=== PATIENT | male | born 1940 | race Caucasian/White ===

== ENCOUNTER 2017-02-15 08:26 | Emergency (ER) | payer SELFPAY ==
[~2017-02-15] VITALS: Ht 177.8 cm; Wt 63.5 kg
[2017-02-15] MEDS ORDERED: NKM (08:30)
[2017-02-15 08:32] VITALS: BP 143/85
--- NOTE | 2017-02-15 08:53 | Emergency Room Report ---
History of Present Illness General Chief Complaint: Male Urogenital Problems Source: Patient, EMS Present Illness HPI Patient reports he has had decreased urine output over the past 4 days He feels of the urine is building up in the bladder however has not been able to fully void Patient reports that he has never had this problem in the past Denies any fevers or chills denies any fall or trauma Denies any weakness in the legs denies any back injury Denies any medications The discomfort is 2/10 with pressure in the suprapubic area Allergies: Coded Allergies: No Known Allergies (Unverified , 02/15/17) Patient History Past Medical History: see triage record Pertinent Family History: none Reviewed Nursing Documentation: PMH: Agreed, PSxH: Agreed Nursing Documentation-PMH Hx COPD: Yes Review of Systems All Other Systems: negative except mentioned in HPI Physical Exam Vital Signs Date Time Temp Pulse Resp B/P (MAP) Pulse Ox O2 Delivery O2 Flow Rate FiO2 02/15/17 08:24 98.1 107 20 141/92 90 Room Air Sp02 EP Interpretation: reviewed, normal General Appearance: no apparent distress - However mildly disheveled Head: normocephalic, atraumatic Eyes: bilateral eye PERRL, bilateral eye EOMI ENT: normal pharynx Neck: supple, thyroid normal Respiratory: lungs clear, normal breath sounds Cardiovascular #1: regular rate, rhythm, no edema Gastrointestinal: non tender, soft Genitourinary: no CVA tenderness Musculoskeletal: normal inspection Neurologic: alert, oriented x3, responsive, metal template maker III-XII nml as tested Skin: normal color, no rash Lymphatic: no adenopathy Medical Decision Making Diagnostic Impression: Primary Impression: Urinary retention Additional Impression: UTI (urinary tract infection) ER Course Multiple differentials considered Including but not limited to obstructive Patient blood work appears normal kidney function is appropriate urine sample showed small blood with few bacteria patient was treated with antibiotics for this Savage catheter will be left in place Patient requires close urology followup And will return with any changes Labs Test 02/15/17 08:45 02/15/17 09:05 White Blood Count 5.4 K/UL (4.8-10.8) Red Blood Count 4.99 M/UL (4.70-6.10) Hemoglobin 14.6 G/DL (14.2-18.0) Hematocrit 45.8 % (42.0-52.0) Mean Corpuscular Volume 92 FL (80-99) Mean Corpuscular Hemoglobin 29.2 PG (27.0-31.0) Mean Corpuscular Hemoglobin Concent 31.8 G/DL (32.0-36.0) Red Cell Distribution Width 14.3 % (11.6-14.8) Platelet Count 305 K/UL (150-450) Mean Platelet Volume 4.9 FL (6.5-10.1) Neutrophils (%) (Auto) 74.9 % (45.0-75.0) Lymphocytes (%) (Auto) 12.4 % (20.0-45.0) Monocytes (%) (Auto) 7.2 % (1.0-10.0) Eosinophils (%) (Auto) 4.1 % (0.0-3.0) Basophils (%) (Auto) 1.3 % (0.0-2.0) Sodium Level 144 MMOL/L (136-145) Potassium Level 3.5 MMOL/L (3.5-5.1) Chloride Level 104 MMOL/L (98-107) Carbon Dioxide Level 30 MMOL/L (21-32) Anion Gap 10 mmol/L (5-15) Blood Urea Nitrogen 19 mg/dL (7-18) Creatinine 1.1 MG/DL (0.55-1.30) Estimat Glomerular Filtration Rate mL/min (>60) Glucose Level 118 MG/DL (74-106) Calcium Level 9.3 MG/DL (8.5-10.1) Total Bilirubin 0.4 MG/DL (0.2-1.0) Aspartate Amino Transf (AST/SGOT) 14 U/L (15-37) Alanine Aminotransferase (ALT/SGPT) 13 U/L (12-78) Alkaline Phosphatase 73 U/L (46-116) Total Protein 8.0 G/DL (6.4-8.2) Albumin 3.6 G/DL (3.4-5.0) Globulin 4.4 g/dL Albumin/Globulin Ratio 0.8 (1.0-2.7) Urine Color Yellow Urine Appearance Clear Urine pH 5 (4.5-8.0) Urine Specific [place] 1.020 (1.005-1.035) Urine Protein 1+ (NEGATIVE) Urine Glucose (UA) Negative (NEGATIVE) Urine Ketones 1+ (NEGATIVE) Urine Occult Blood 1+ (NEGATIVE) Urine Nitrite Negative (NEGATIVE) Urine Bilirubin Negative (NEGATIVE) Urine Urobilinogen 1 MG/DL (0.0-1.0) Urine Leukocyte Esterase 1+ (NEGATIVE) Urine RBC 2-4 /HPF (0 - 0) Urine WBC 0-2 /HPF (0 - 0) Urine Squamous Epithelial Cells Occasional /LPF Urine Bacteria Occasional /HPF (NONE) Urine Mucus Moderate /LPF (NONE/OCC) Last Vital Signs Date Time Temp Pulse Resp B/P (MAP) Pulse Ox O2 Delivery O2 Flow Rate FiO2 02/15/17 08:32 97.8 80 25 143/85 98 Room Air Status: improved Disposition: HOME, SELF-CARE Condition: Improved Scripts Levofloxacin* (LEVAQUIN*) 500 Mg Tablet 500 MG ORAL DAILY for 7 Days, TAB Prov: YAHAIRA PETTY D.O. 02/15/17 Tamsulosin HCl (Flomax) 0.4 Mg Cap.er.24h 0.4 MG ORAL DAILY, #5 CAP Prov: YAHAIRA PETTY D.O. 02/15/17 Additional Instructions: Patient is provided with the discharge instructions notified to follow up with primary doctor in the next 2-3 days otherwise return to the er with any worsening symptoms. Please note that this report is being documented using [employer] technology. This can lead to erroneous entry secondary to incorrect interpretation by the dictating instrument. YAHAIRA PETTY D.O. Feb 15, 2017 08:53
[2017-02-15] MEDS ORDERED: Lidocaine HCl 2% Jelly 5ml Tube TOPIC ONE ×2 (08:54→09:00)
[2017-02-15 09:05] LABS: BASOPHILS % (AUTO) 1.3 % (0.0-2.0); EOSINOPHILS % (AUTO) 4.1 % (0.0-3.0); HEMATOCRIT 45.8 % (42.0-52.0); HEMOGLOBIN 14.6 G/DL (14.2-18.0); LYMPHOCYTES % (AUTO) 12.4 % (20.0-45.0); MEAN CORPUSCULAR VOLUME 92 FL (80-99); MONOCYTES % (AUTO) 7.2 % (1.0-10.0); NEUTROPHILS % (AUTO) 74.9 % (45.0-75.0); PLATELET COUNT 305 K/UL (150-450); RED BLOOD COUNT 4.99 M/UL (4.70-6.10); RED CELL DISTRIBUTION WIDTH 14.3 % (11.6-14.8); WHITE BLOOD COUNT 5.4 K/UL (4.8-10.8)
[2017-02-15 09:22] LABS: ALANINE AMINOTRANSFERASE 13 U/L (12-78); ALBUMIN 3.6 G/DL (3.4-5.0); ALBUMIN/GLOBULIN RATIO 0.8 (1.0-2.7); ALKALINE PHOSPHATASE 73 U/L (46-116); ANION GAP 10 mmol/L (5-15); ASPARTATE AMINO TRANSFERASE 14 U/L (15-37); BILIRUBIN,TOTAL 0.4 MG/DL (0.2-1.0); BLOOD UREA NITROGEN 19 mg/dL (7-18); CALCIUM 9.3 MG/DL (8.5-10.1); CARBON DIOXIDE 30 MMOL/L (21-32); CHLORIDE 104 MMOL/L (98-107); CREATININE 1.1 MG/DL (0.55-1.30); POTASSIUM 3.5 MMOL/L (3.5-5.1); SODIUM 144 MMOL/L (136-145)
[2017-02-15 09:23] LABS: APPEARANCE,URINE CLEAR; BILIRUBIN, URINE NEGATIVE (NEGATIVE); GLUCOSE, URINE (UA) NEGATIVE (NEGATIVE); KETONES,URINE 1+ (NEGATIVE); LEUKOCYTE ESTERASE ,URINE 1+ (NEGATIVE); NITRITE,URINE NEGATIVE (NEGATIVE); PH,URINE 5 (4.5-8.0); PROTEIN,URINE 1+ (NEGATIVE); UROBILINOGEN,URINE 1 MG/DL (0.0-1.0)
[2017-02-15 09:26] LABS: COLOR,URINE YELLOW
[2017-02-15] MEDS ORDERED: FLOMAX0.4 MG ORAL (09:38)
[2017-02-15] MEDS ORDERED: LEVAQUIN500 MG ORAL (09:38)
[2017-02-15] MEDS ORDERED: Levofloxacin 500mg tab ORAL ONE (09:45)
[2017-02-15 10:00] VITALS: BP 129/79
== END 2017-02-15 10:00 | disposition home or self-care (01) ==
LOC: EDBD 08:26 → EMR 09:03
DX: R33.9 Retention of urine, unspecified (principal); N39.0 Urinary tract infection, site not specified; J44.9 Chronic obstructive pulmonary disease, unspecified
CPT/HCPCS: 36415; 80053; 81003; 85025; 99284

== ENCOUNTER 2017-02-18 06:42 | Emergency (ER) | payer SELFPAY ==
[~2017-02-18] VITALS: Ht 177.8 cm; Wt 61.2 kg
[~2017-02-18 06:42] MED LIST: FLOMAX0.4 MG ORAL; LEVAQUIN500 MG ORAL; NKM
--- NOTE | 2017-02-18 06:51 | Emergency Room Report ---
History of Present Illness General Chief Complaint: General Complaint Source: Patient Present Illness HPI Patient presents with complaints and request of catheter removal Patient was here several days ago with urinary retention Patient was supposed to be following up with primary physician He reports it is not able to do so and presents back to the ER Denies any fevers or chills denies any chest pain or shortness of breath Urine has been flowing into the Savage bag Denies any abdominal pain Denies any fevers or chills Allergies: Coded Allergies: No Known Allergies (Unverified , 02/15/17) Patient History Past Medical History: see triage record Pertinent Family History: none Reviewed Nursing Documentation: PMH: Agreed, PSxH: Agreed Nursing Documentation-PMH Hx COPD: Yes Review of Systems All Other Systems: negative except mentioned in HPI Physical Exam Vital Signs Date Time Temp Pulse Resp B/P (MAP) Pulse Ox O2 Delivery O2 Flow Rate FiO2 02/18/17 06:44 97.2 129 18 127/89 95 Room Air Sp02 EP Interpretation: reviewed, normal General Appearance: no apparent distress Head: normocephalic, atraumatic Eyes: bilateral eye PERRL, bilateral eye EOMI ENT: normal pharynx, no angioedema Neck: full range of motion, supple Respiratory: chest non-tender, lungs clear Cardiovascular #1: regular rate, rhythm Gastrointestinal: non tender, soft Genitourinary: no CVA tenderness Musculoskeletal: normal inspection Neurologic: alert, oriented x3 Skin: no rash Lymphatic: no adenopathy Medical Decision Making Diagnostic Impression: Primary Impression: Encounter for Savage catheter removal ER Course Patient's Savage catheter was removed At this time he is encouraged again to follow with primary physician With possible urology referral as needed And otherwise will return with any changes Last Vital Signs Date Time Temp Pulse Resp B/P (MAP) Pulse Ox O2 Delivery O2 Flow Rate FiO2 02/18/17 06:44 97.2 129 18 127/89 95 Room Air Status: improved Disposition: HOME, SELF-CARE Condition: Improved Additional Instructions: Patient is provided with the discharge instructions notified to follow up with primary doctor in the next 2-3 days otherwise return to the er with any worsening symptoms. Please note that this report is being documented using [employer] technology. This can lead to erroneous entry secondary to incorrect interpretation by the dictating instrument. YAHAIRA PETTY D.O. Feb 18, 2017 06:51
[2017-02-18 06:57] VITALS: BP 116/74
[2017-02-18 07:10] VITALS: BP 119/74
== END 2017-02-18 07:10 | disposition home or self-care (01) ==
LOC: EMR 06:55
DX: Z46.6 Encounter for fitting and adjustment of urinary device (principal); R33.9 Retention of urine, unspecified; J44.9 Chronic obstructive pulmonary disease, unspecified
CPT/HCPCS: 99282

== ENCOUNTER 2017-02-19 06:44 | Emergency (ER) | payer SELFPAY ==
[~2017-02-19] VITALS: Ht 177.8 cm; Wt 61.2 kg
--- NOTE | 2017-02-19 07:15 | Emergency Room Report ---
History of Present Illness General Chief Complaint: Male Urogenital Problems Source: Patient Present Illness HPI Patient was here previously with urinary retention Savage catheter had been placed, patient had return to the ER for removal of the catheter yesterday and now presents with retention since last night Patient has increased fullness in the bladder / pain Reports it is not as bad as the first time however did not want to wait Denies any fevers denies any chest pain or shortness of breath Allergies: Coded Allergies: No Known Allergies (Unverified , 02/15/17) Patient History Past Medical History: see triage record Pertinent Family History: none Reviewed Nursing Documentation: PMH: Agreed, PSxH: Agreed Nursing Documentation-PMH Hx COPD: Yes Review of Systems All Other Systems: negative except mentioned in HPI Physical Exam Vital Signs Date Time Temp Pulse Resp B/P (MAP) Pulse Ox O2 Delivery O2 Flow Rate FiO2 02/19/17 06:46 97.7 103 16 132/86 96 Room Air Sp02 EP Interpretation: reviewed, normal General Appearance: well appearing, no apparent distress Head: normocephalic, atraumatic Eyes: bilateral eye PERRL, bilateral eye EOMI ENT: hearing grossly normal, normal pharynx Neck: full range of motion, supple Respiratory: lungs clear Cardiovascular #1: regular rate, rhythm Gastrointestinal: non tender, soft, no mass Musculoskeletal: normal inspection Neurologic: alert, oriented x3, responsive Skin: normal color, no rash Lymphatic: no adenopathy Medical Decision Making Diagnostic Impression: Primary Impression: Urinary retention ER Course At this time the patient had Savage catheter placed, there was no obvious of urine output, palpation of the bladder does not reveal any fullness, bedside evaluation does not reveal any urine in the bladder Patient has had recent blood work showing appropriate kidney function At this time patient requires improved outpatient followup Patient reports that he has no insurance and does not have a primary physician, he was given referral to low-cost clinics and also possibility of followup at [facility] Last Vital Signs Date Time Temp Pulse Resp B/P (MAP) Pulse Ox O2 Delivery O2 Flow Rate FiO2 02/19/17 06:46 97.7 103 16 132/86 96 Room Air Status: improved Disposition: HOME, SELF-CARE Condition: Improved Referrals: NOT CHOSEN IPA/MD,REFERRING (PCP) Additional Instructions: Followup with primary physician next 2-3 days. You have stated that he did not have a primary physician therefore clinic has been provided for you With phone numbers. IF [facility] is not possible [facility], YAHAIRA PETTY D.O. Feb 19, 2017 07:15
[2017-02-19 07:44] VITALS: BP 135/86
[2017-02-19 08:41] VITALS: BP 135/86
== END 2017-02-19 08:45 | disposition home or self-care (01) ==
LOC: EMR 07:02
DX: R33.9 Retention of urine, unspecified (principal); J44.9 Chronic obstructive pulmonary disease, unspecified
CPT/HCPCS: 99283

== ENCOUNTER 2018-05-31 12:02 | Emergency (ER) | payer MEDICARE, OTHER ==
[~2018-05-31] VITALS: Ht 182.9 cm; Wt 77.1 kg
[2018-05-31] MEDS ORDERED: NKM (12:27)
--- NOTE | 2018-05-31 12:45 | NUR ---
ED Nurse Note: Pt came into the Er w/ complaints of difficulty urinating x 2 days. Denies pain. Pt is A + O x4. AMbulatory. Skin warm to otuch.
[2018-05-31 12:46] VITALS: BP 161/93
[2018-05-31] MEDS ORDERED: TAMSULOSIN HCL0.4 MG ORAL (13:08)
[2018-05-31 13:32] VITALS: BP 134/96
--- NOTE | 2018-05-31 13:33 | NUR ---
ER DISCHARGE NOTE: Patient is cleared to be discharged per ERMD, pt is aox4, on room air, with stable vital signs. pt was given dc and prescription instructions, pt was able to verbalize understanding, pt id band removed without complications. pt is able to ambulate with steady gait. pt took all belongings. Urinary leg bag given to pt as per ERMD order.
--- NOTE | 2018-05-31 14:00 | Emergency Room Report ---
History of Present Illness General Chief Complaint: Male Urogenital Problems Source: Patient Present Illness HPI patient presents with urinary retention over the past 1-1/2-2 days Patient has had this problem several times in the past Denies any abdominal pain however he does feel that he is becoming more bloated in the suprapubic area denies any fevers or chills denies any flank pain Patient has been followed at [facility] for this problem reports the last time he required a catheter was the last time he was here Denies any other fall or trauma Allergies: Coded Allergies: No Known Allergies (Unverified , 02/15/17) Patient History Past Medical History: see triage record Pertinent Family History: none Reviewed Nursing Documentation: PMH: Agreed; PSxH: Agreed Nursing Documentation-PMH Past Medical History: No Stated History Hx COPD: Yes Review of Systems All Other Systems: negative except mentioned in HPI Physical Exam Vital Signs Date Time Temp Pulse Resp B/P (MAP) Pulse Ox O2 Delivery O2 Flow Rate FiO2 05/31/18 12:25 98.1 104 22 140/84 89 Room Air Sp02 EP Interpretation: reviewed, normal General Appearance: well appearing, no apparent distress, thin Head: normocephalic, atraumatic Eyes: bilateral eye PERRL, bilateral eye EOMI ENT: hearing grossly normal, normal pharynx, TMs + canals normal, uvula midline Neck: full range of motion, supple, no meningismus, no bony tend Respiratory: lungs clear, normal breath sounds, no rhonchi, no respiratory distress, no retraction, no accessory muscle use Cardiovascular #1: normal peripheral pulses, regular rate, rhythm, no edema, no gallop, no JVD, no murmur Gastrointestinal: normal bowel sounds, non tender, soft, no mass, no organomegaly, non-distended, no guarding, no hernia, no pulsatile mass, no rebound Genitourinary: no CVA tenderness Musculoskeletal: normal inspection Neurologic: oriented x3, responsive, oil recovery unit operator III-XII nml as tested, motor strength/ tone normal, sensory intact Psychiatric: mood/affect normal Skin: normal color, no rash, warm/dry, palpation normal Lymphatic: normal inspection, no adenopathy Medical Decision Making Diagnostic Impression: Primary Impression: Urinary retention ER Course Patient is here with social sciences department chair Who provides him with assistance Patient reports that he has had follow-up as outpatient and has appropriate follow-up at this time as well Savage catheter was placed which does reveal over 600 cc of urine output Patient was provided with Flomax and leg bag patient has had previous extensive workup for this And requires improved outpatient follow-up Last Vital Signs Date Time Temp Pulse Resp B/P (MAP) Pulse Ox O2 Delivery O2 Flow Rate FiO2 05/31/18 13:32 98.2 92 12 134/96 96 Room Air Status: improved Disposition: HOME, SELF-CARE Condition: Improved Scripts Tamsulosin Hcl (TAMSULOSIN HCL*) 0.4 Mg Cap.er.24h 0.4 MG ORAL BEDTIME for 5 Days, CAP Prov: Tyler Torres DO 05/31/18 Patient Instructions: Acute Urinary Retention, Male, [id number] Additional Instructions: Please note that it has been discussed on several occasion the need for close outpatient follow-up. Urinary retention can be signs of other medical conditions specifically given your age and risk factors this is significantly important Patient is provided with the discharge instructions notified to follow up with primary doctor in the next 2-3 days otherwise return to the er with any worsening symptoms. Please note that this report is being documented using [employer] technology. This can lead to erroneous entry secondary to incorrect interpretation by the dictating instrument. Tyler Torres DO May 31, 2018 14:00
[2018-05-31] MEDS ORDERED: Tamsulosin 0.4mg cap ORAL ONE (21:00)
== END 2018-05-31 13:34 | disposition home or self-care (01) ==
LOC: EMR 13:30
DX: R33.9 Retention of urine, unspecified (principal); J44.9 Chronic obstructive pulmonary disease, unspecified
CPT/HCPCS: 51702; 99284

== ENCOUNTER 2018-06-02 12:04 | Emergency (ER) | payer MEDICARE, OTHER ==
[~2018-06-02] VITALS: Ht 182.9 cm; Wt 72.6 kg
[~2018-06-02 12:04] MED LIST changes: +TAMSULOSIN HCL0.4 MG ORAL
--- NOTE | 2018-06-02 12:20 | NUR ---
ED Nurse Note: patient walked into ED, escorted by his caser shoe parts, Nolberto Early, pt is from independent living [facility]. patient wishes for the arrieta catheter to be removed.
[2018-06-02 12:26] VITALS: BP 109/73
--- NOTE | 2018-06-02 12:35 | Emergency Room Report ---
History of Present Illness General Chief Complaint: Male Urogenital Problems Source: Patient, Caregiver Present Illness HPI 78-year-old male presents with his supervisor case loading from assisted living because he requested to have his Savage catheter removed, he denies that it's been hurting him, just reports he's annoyed with it and wants it out. He reports he had a similar episode 8 months ago and for the majority of that time has been able to live without the catheter. The catheter was just placed here 2 days ago, and he just started taking Flomax. Patient denies any fevers, bowel pain, back pain , hematuria, any symptoms at all. Allergies: Coded Allergies: No Known Allergies (Unverified , 02/15/17) Patient History Past Medical History: see triage record Reviewed Nursing Documentation: PMH: Agreed; PSxH: Agreed Nursing Documentation-PMH Past Medical History: No History, Except For Hx COPD: Yes Review of Systems Constitutional: Denies: fever Eye: Denies: acuity changes Respiratory: Denies: cough, shortness of breath Cardiovascular: Denies: chest pain Gastrointestinal: Denies: nausea, vomiting Skin: Denies: rash Neurological: Denies: headache Physical Exam Vital Signs Date Time Temp Pulse Resp B/P (MAP) Pulse Ox O2 Delivery O2 Flow Rate FiO2 06/02/18 12:17 98.8 91 18 109/73 92 Room Air General Appearance: well appearing, no apparent distress Head: normocephalic, atraumatic ENT: hearing grossly normal, normal voice Neck: full range of motion, supple Respiratory: no respiratory distress, speaking full sentences Genitourinary: normal inspection, penis normal - Savage catheter seen at urethra without abnormality or urethral trauma, scrotum normal Musculoskeletal: no calf tenderness Neurologic: alert, normal gait Psychiatric: mood/affect normal Skin: no rash Medical Decision Making Diagnostic Impression: Primary Impression: Encounter for Savage catheter removal ER Course Patient requested Savage catheter removal, but It's only been in 2 days, he's had 2 doses of Flomax, therefore I was able to convince him to keep it in longer, and follow-up with primary care doctor or urologist, I explained to him that it may not just been enlarged prostate but it may be cancer and he should have a urology evaluation formally.Patient and supervisor case loading understand and agree, there discharged without any interventions and Savage catheter left in place. Last Vital Signs Date Time Temp Pulse Resp B/P (MAP) Pulse Ox O2 Delivery O2 Flow Rate FiO2 06/02/18 12:26 98.8 91 18 109/73 92 Room Air Disposition: HOME, SELF-CARE Condition: Stable Patient Instructions: Acute Urinary Retention, Male, [id number] LORA CERVANTES M.D Jun 02, 2018 12:35
--- NOTE | 2018-06-02 13:00 | NUR ---
ED Nurse Note: Patient is cleared to be discharged per ERMD, pt is aox4, on room air, with stable vital signs. pt was given dc instructions, pt was able to verbalize understanding, pt id band removed pt is able to ambulate with steady gait, escorted out of ED with his manager of case pt took all belongings.
[2018-06-02 13:28] VITALS: BP 109/73
== END 2018-06-02 13:00 | disposition home or self-care (01) ==
LOC: EMR 12:48
DX: Z46.6 Encounter for fitting and adjustment of urinary device (principal); R33.9 Retention of urine, unspecified; J44.9 Chronic obstructive pulmonary disease, unspecified
CPT/HCPCS: 99281

== ENCOUNTER 2018-06-27 11:01 | Inpatient (IN) | payer MEDICARE, OTHER ==
[~2018-06-27] VITALS: Ht 182.9 cm; Wt 49.9 kg
[2018-06-27] MEDS ORDERED: VENTOLIN HFA18 GM INH (11:04)
[2018-06-27] MEDS ORDERED: Solu-MEDROL 125mg Inj IVP ONE (11:15)
[2018-06-27] MEDS: Ipratropium 0.02% Inh Soln 2.5ml UD HHN SCH ×3 (11:24→11:56)
[2018-06-27] MEDS: Albuterol ud Inhalation HHN SCH ×3 (11:24→11:56)
--- NOTE | 2018-06-27 11:30 | NUR ---
ED Nurse Note: patient was brought by RA from [facility], complaining of SOB, chest pain. [facility] RN went to patient's house and recognised that pt having severe SOB. AAO x4, VSS at this time, skin is dry intact, warm to touch. connected to the monitor, will continue to monitor.
[2018-06-27 11:42] VITALS: BP 138/82
[2018-06-27 11:50] LABS: APPEARANCE,URINE SLIGHTLY CLOUDY; BILIRUBIN, URINE NEGATIVE (NEGATIVE); GLUCOSE, URINE (UA) NEGATIVE (NEGATIVE); KETONES,URINE 4+ (NEGATIVE); LEUKOCYTE ESTERASE ,URINE 2+ (NEGATIVE); NITRITE,URINE POSITIVE (NEGATIVE); PH,URINE 6 (4.5-8.0); PROTEIN,URINE 3+ (NEGATIVE); UROBILINOGEN,URINE NORMAL MG/DL (0.0-1.0)
[2018-06-27 11:51] LABS: HEMATOCRIT 44.9 % (42.0-52.0); HEMOGLOBIN 13.4 G/DL (14.2-18.0); MEAN CORPUSCULAR VOLUME 76 FL (80-99); PLATELET COUNT 357 K/UL (150-450); RED BLOOD COUNT 5.92 M/UL (4.70-6.10); RED CELL DISTRIBUTION WIDTH 16.9 % (11.6-14.8); WHITE BLOOD COUNT 6.4 K/UL (4.8-10.8)
[2018-06-27 11:57] LABS: COLOR,URINE YELLOW
[2018-06-27 12:02] LABS: ANION GAP 10 mmol/L (5-15); BLOOD UREA NITROGEN 35 mg/dL (7-18); CALCIUM 9.9 MG/DL (8.5-10.1); CARBON DIOXIDE 33 MMOL/L (21-32); CHLORIDE 98 MMOL/L (98-107); CREATININE 1.3 MG/DL (0.55-1.30); POTASSIUM 4.2 MMOL/L (3.5-5.1); SODIUM 141 MMOL/L (136-145)
[2018-06-27 12:15] LABS: ALANINE AMINOTRANSFERASE 11 U/L (12-78); ALBUMIN 3.8 G/DL (3.4-5.0); ALBUMIN/GLOBULIN RATIO 0.8 (1.0-2.7); ALKALINE PHOSPHATASE 77 U/L (46-116); ASPARTATE AMINO TRANSFERASE 14 U/L (15-37); BILIRUBIN,TOTAL 0.4 MG/DL (0.2-1.0); CKMB 2.2 NG/ML (0.0-3.6); CREATINE KINASE 44 U/L (26-308)
[2018-06-27] MEDS ORDERED: Azithromycin 500 MG in NS 275 ML IV ONE (12:15)
[2018-06-27] MEDS ORDERED: cefTRIAXone 1 GM in NS 55 ML IVPB ONE (12:15)
[2018-06-27 12:42] VITALS: BP 138/82
--- NOTE | 2018-06-27 12:45 | NUR ---
ED Nurse Note: patient was admited to tele, AAO x 4, VSS at rthis time, all belonging were given to the patient. patient was transfered by ACLS protocol.
--- NOTE | 2018-06-27 13:06 | Diagnostic Imaging Report ---
Indication: Shortness of breath Technique: One view of the chest Comparison: none Findings: There is bilateral diffuse interstitial disease. Multiple old bilateral rib fracture deformities are demonstrated. There is slight blunting of the left costophrenic sulcus. The heart size is normal. The lungs are somewhat hyperinflated. 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 Correlate with clinical history and findings Multiple old healed bilateral rib fracture deformities Left costophrenic angle blunting. Probably on the basis of chronic scarring/COPD but small effusion also possible
--- NOTE | 2018-06-27 14:10 | NUR ---
NURSE NOTES: Received report from DIANA Mcconnell. Patient transferred from ER to tele. monitoring analyst on, VS at the time of arrival BP 122/77, HR 109, O2 sat 96% onroom air, T 97.7. Patient was able to walk into bed from [facility]. Belonging list checked with RN. Patient in bed resting, no active s/s cardiac, respiratory distress noticed at this time, denies pain at this time. Patient admitted hospital with Savage catheter on for urinary retention, draining well to gravity. Bed in lowest position, side rails up, call light within reach. Will continue to monitor.
--- NOTE | 2018-06-27 14:34 | Emergency Room Report ---
History of Present Illness General Chief Complaint: Dyspnea/Respdistress Source: Patient, EMS Present Illness HPI 78-year-old male presents ED for evaluation. Brought in by EMS from home. healthcare social worker at bedside. States that patient has COPD. States that she went to check on the patient today and did not appear well. Looks to be having shortness of breath. Patient notes cough, wheezing. Denies chest pain. Denies fevers or chills. Admits to smoking. No other aggravating relieving factors. Denies any other associated symptoms Allergies: Coded Allergies: No Known Allergies (Unverified , 02/15/17) Patient History Past Medical History: COPD Past Surgical History: none Pertinent Family History: none Social History: Reports: smoking; Denies: alcohol use, drug use Immunizations: UTD Reviewed Nursing Documentation: PMH: Agreed; PSxH: Agreed Nursing Documentation-PMH Past Medical History: Deferred Hx Cardiac Problems: No Hx COPD: Yes - EMPHYSEMA Hx Cancer: No Hx Gastrointestinal Problems: No Hx Neurological Problems: No Review of Systems All Other Systems: negative except mentioned in HPI Physical Exam Vital Signs Date Time Temp Pulse Resp B/P (MAP) Pulse Ox O2 Delivery O2 Flow Rate FiO2 06/27/18 10:56 97.9 103 18 128/89 92 Nasal Cannula 2.0 06/27/18 11:25 21 Sp02 EP Interpretation: reviewed, normal General Appearance: no apparent distress, alert, GCS 15, non-toxic, cachetic Head: normocephalic, atraumatic Eyes: bilateral eye normal inspection, bilateral eye PERRL ENT: hearing grossly normal, normal pharynx, no angioedema, normal voice Neck: full range of motion, supple/symm/no masses Respiratory: chest non-tender, decreased breath sounds, speaking full sentences , wheezing Cardiovascular #1: regular rate, rhythm, no edema Cardiovascular #2: 2+ carotid (R), 2+ carotid (L), 2+ radial (R), 2+ radial (L) , 2+ dorsalis pedis (R), 2+ dorsalis pedis (L) Gastrointestinal: normal bowel sounds, non tender, soft, non-distended, no guarding, no rebound Rectal: deferred Genitourinary: normal inspection, no CVA tenderness Musculoskeletal: back normal, gait/station normal, normal range of motion, non- tender Neurologic: alert, oriented x3, responsive, motor strength/tone normal, sensory intact, speech normal Psychiatric: judgement/insight normal, memory normal, mood/affect normal, no suicidal/homicidal ideation Reflexes: 3+ bicep (R), 3+ bicep (L), 3+ tricep (R), 3+ tricep (L), 3+ knee (R) , 3+ knee (L) Skin: normal color, no rash, warm/dry, well hydrated Lymphatic: no adenopathy Medical Decision Making Diagnostic Impression: Primary Impression: COPD exacerbation Additional Impression: UTI (urinary tract infection) Qualified Codes: N39.0 - Urinary tract infection, site not specified ER Course Hospital Course 78-year-old M presenting to ED with SOB. h/o COPD Differential diagnoses include: Pneumonia, CHF exacerbation, pneumothorax, fluid overload Clinical course Patient placed on stretcher. On senior biostatistician/group leader with stable vitals. After initial history and physical, I ordered nebulizer treatments. I ordered labs, IV fluids, EKG, chest x-ray, blood cultures, UA. Labs - no leukocytosis noted, hemoglobin/hematocrit stable, electrolytes okay, lactate okay, troponins negative, UA + bacteria CXR - hyperinflated lungs. no infiltrates EKG - NSR, no acute ischemic changes interpreted by me antibiotics given. Patient does not appear to be an appropriate candidate for outpatient treatment. Patient will require admission Case discussed with Dr. Galeano and he agreed to the patient to his service for further care and support I feel this is a highly complex case requiring extensive working including EKG/ Rhythm strip, Xray/CT/US, Blood/urine lab work, repeat exams while in ED, and administration of strong opiates/narcotics for pain control, admission to hospital or close patient follow up. Diagnosis - COPD exacerbation, UTI Patient admitted to telemetry in serious condition Labs Test 06/27/18 11:25 06/27/18 11:30 White Blood Count 6.4 K/UL (4.8-10.8) Red Blood Count 5.92 M/UL (4.70-6.10) Hemoglobin 13.4 G/DL (14.2-18.0) Hematocrit 44.9 % (42.0-52.0) Mean Corpuscular Volume 76 FL (80-99) Mean Corpuscular Hemoglobin 22.7 PG (27.0-31.0) Mean Corpuscular Hemoglobin Concent 29.8 G/DL (32.0-36.0) Red Cell Distribution Width 16.9 % (11.6-14.8) Platelet Count 357 K/UL (150-450) Mean Platelet Volume 5.4 FL (6.5-10.1) Neutrophils (%) (Auto) % (45.0-75.0) Lymphocytes (%) (Auto) % (20.0-45.0) Monocytes (%) (Auto) % (1.0-10.0) Eosinophils (%) (Auto) % (0.0-3.0) Basophils (%) (Auto) % (0.0-2.0) Differential Total Cells Counted 100 Neutrophils % (Manual) 88 % (45-75) Lymphocytes % (Manual) 8 % (20-45) Monocytes % (Manual) 3 % (1-10) Eosinophils % (Manual) 1 % (0-3) Basophils % (Manual) 0 % (0-2) Band Neutrophils 0 % (0-8) Platelet Estimate Adequate Platelet Morphology Normal Hypochromasia 1+ Anisocytosis 1+ Sodium Level 141 MMOL/L (136-145) Potassium Level 4.2 MMOL/L (3.5-5.1) Chloride Level 98 MMOL/L (98-107) Carbon Dioxide Level 33 MMOL/L (21-32) Anion Gap 10 mmol/L (5-15) Blood Urea Nitrogen 35 mg/dL (7-18) Creatinine 1.3 MG/DL (0.55-1.30) Estimat Glomerular Filtration Rate mL/min (>60) Glucose Level 117 MG/DL (74-106) Lactic Acid Level 1.30 mmol/L (0.4-2.0) Calcium Level 9.9 MG/DL (8.5-10.1) Total Bilirubin 0.4 MG/DL (0.2-1.0) Aspartate Amino Transf (AST/SGOT) 14 U/L (15-37) Alanine Aminotransferase (ALT/SGPT) 11 U/L (12-78) Alkaline Phosphatase 77 U/L (46-116) Total Creatine Kinase 44 U/L (26-308) Creatine Kinase MB 2.2 NG/ML (0.0-3.6) Creatine Kinase MB Relative Index 5.0 Troponin I 0.000 ng/mL (0.000-0.056) Pro-B-Type Natriuretic Peptide 443 pg/mL (0-125) Total Protein 8.7 G/DL (6.4-8.2) Albumin 3.8 G/DL (3.4-5.0) Globulin 4.9 g/dL Albumin/Globulin Ratio 0.8 (1.0-2.7) Urine Color Yellow Urine Appearance Slightly cloudy Urine pH 6 (4.5-8.0) Urine Specific [place] 1.020 (1.005-1.035) Urine Protein 3+ (NEGATIVE) Urine Glucose (UA) Negative (NEGATIVE) Urine Ketones 4+ (NEGATIVE) Urine Blood 4+ (NEGATIVE) Urine Nitrite Positive (NEGATIVE) Urine Bilirubin Negative (NEGATIVE) Urine Urobilinogen Normal MG/DL (0.0-1.0) Urine Leukocyte Esterase 2+ (NEGATIVE) Urine RBC 5-10 /HPF (0 - 0) Urine WBC 10-15 /HPF (0 - 0) Urine Squamous Epithelial Cells Occasional /LPF Urine Amorphous Sediment Few /LPF (NONE) Urine Bacteria Moderate /HPF (NONE) EKG Diagnostic Results Rate: normal Rhythm: NSR ST Segments: no acute changes ASA given to the pt in ED: No Rhythm Strip Diag. Results EP Interpretation: yes Rhythm: NSR, no PVC's, no ectopy Chest X-Ray Diagnostic Results Chest X-Ray Diagnostic Results : Chest X-Ray Ordered: Yes # of Views/Limited/Complete: 1 View Indication: Shortness of Breath EP Interpretation: Yes Interpretation: no consolidation, no effusion, no pneumothorax, other - interstitial disease Impression: Other - COPD Electronically Signed by: Electronically signed by Jesus Manuel Combs MD Last Vital Signs Date Time Temp Pulse Resp B/P (MAP) Pulse Ox O2 Delivery O2 Flow Rate FiO2 06/27/18 12:04 68 20 100 Room Air 21 06/27/18 11:42 138/82 06/27/18 11:15 2.0 06/27/18 10:56 97.9 Status: improved Disposition: ADMITTED INPATIENT Condition: Serious Referrals: NON PHYSICIAN (PCP) Jesus Manuel Combs MD Jun 27, 2018 14:34
--- NOTE | 2018-06-27 15:00 | NUR ---
NURSE NOTES: Called Dr. Galeano for admission order. Order received, entered, noted and carried out.
[2018-06-27] MEDS ORDERED: guaiFENesin w/Codeine 5ml Liq ud ORAL PRN (16:30)
[2018-06-27] MEDS: Solu-MEDROL 40mg Inj IVP SCH (17:49)
--- NOTE | 2018-06-27 19:58 | NUR ---
HAND-OFF: Report given to DIANA Pollack.
[2018-06-27] MEDS: Albuterol/Ipratropium 3ml neb HHN SCH ×2 (19:59→22:51)
[2018-06-27 20:00] VITALS: BP 113/76
--- NOTE | 2018-06-27 20:00 | NUR ---
NURSE NOTES: Received report from Jim Hawley RN. Patient in bed AAO X4 with no S/S of acute pain or distress noted at this time. Able to verbally express needs and wants appropriately with no difficulty. On N/C 2L PRN with 02 sat at 95-96% with no respiratory distress at this time. IV line intact and patent. Safety precaution in place; siderails x3 up, call light within reach, bed in lowest position, brakes and alarm on at all times and placed on continuous cardiac monitoring per protocol. Needs and wants anticipated and attended, will continue plan of care and monitor for any changes noted FC present prior to ED admission. Patent and intact. Will continue to monitor
[2018-06-27] MEDS: Tamsulosin 0.4mg cap ORAL SCH (20:54)
[2018-06-27] MEDS: Heparin 5000 units/ml inj SUBQ SCH (20:56)
[2018-06-28] MEDS: Solu-MEDROL 40mg Inj IVP SCH ×4 (00:25→17:55)
--- NOTE | 2018-06-28 02:00 | Consultation ---
DATE OF CONSULTATION: 06/27/2018 CARDIOLOGY CONSULT: CONSULTING PHYSICIAN: Kilo Dunn M.D. REFERRING PHYSICIAN: Jairon Galeano M.D. REASON: Elevated natriuretic peptide in the setting of respiratory distress. HISTORY OF PRESENT ILLNESS: This is a 78-year-old white male. He lives independently. He notes several days of progressive shortness of breath. He has had some cough and congestion. He apparently was started on antibiotics by his primary care physician. He did not improve, rather he worsened, and came to the emergency room. I have been asked to address his elevated natriuretic peptide assay in the possibility of a cardiovascular contribution to his presentation. PAST MEDICAL HISTORY: Includes COPD. SOCIAL HISTORY: Active smoker, 50+ pack years. Social alcohol. No substance abuse. MEDICATIONS: Reviewed and reconciled. ALLERGIES: None known. FAMILY HISTORY: Noncontributory. REVIEW OF SYSTEMS: He denies known history of irregular heartbeats, rheumatic heart disease, endocarditis, coronary artery disease, heart attack, high blood pressure. He denies seizures or strokes. He denies diabetes or known thyroid impairment. He denies history of blood clots in the legs. PHYSICAL EXAMINATION: VITAL SIGNS: Afebrile, blood pressure 128/89, pulse 103, respirations 18. HEENT: Temporal wasting. Pale conjunctivae. GENERAL: Thin and frail. NECK: Jugular venous pressure normal. LUNGS: Accessory muscle use. Bilateral breath sounds. Rhonchi and expiratory wheezes. CARDIAC: Regular rhythm. Rapid rate. Normal S1, S2 with no murmur, rub, or gallop. ABDOMEN: Soft and nontender. EXTREMITIES: Without edema. DIAGNOSTIC AND LABORATORY DATA: Chest x-ray, hyperinflation. Interstitial markings are increased. White count 6.4, hemoglobin 13.4. Sodium 141, potassium 4.2, bicarbonate 33, BUN 35, creatinine 1.3. Troponin negative and Pro-natriuretic peptide is 443. Urinalysis with 10 to 15 white cells. EKG, sinus rhythm, biatrial enlargement, no acute abnormalities. IMPRESSION: 1. COPD with acute exacerbation. 2. Acute bronchitis and possible bronchial pneumonia. 3. Mild dehydration and hypovolemia. 4. Elevated natriuretic peptide, likely reflective of right heart filling pressures increase due to underlying lung disease. PLAN: 1. Inhaled bronchodilators. 2. Intravenous steroids. 3. Empiric antimicrobials. 4. No antiarrhythmics. 5. Echocardiogram to evaluate for PA systolic pressure elevation. 6. DVT prophylaxis. 7. Maintain adequate hydration. 8. No role for diuretics at this time. 9. Monitor acid-base parameters and oxygenation. Kilo Dunn M.D. DR: SAMANTHA JOB#: [id number] CC:
[2018-06-28] MEDS: Albuterol/Ipratropium 3ml neb HHN SCH ×6 (02:29→23:03)
--- NOTE | 2018-06-28 03:00 | History and Physical Report ---
DATE OF ADMISSION: 06/27/2018 HISTORY OF PRESENT ILLNESS: This is a 78-year-old male who came to the hospital with shortness of breath. The patient has a history of chronic obstructive pulmonary disease. The patient reported cough, shortness of breath, and wheezing. He denies any chest pain. Denies any cough with purulence. He is an active smoker. The patient reports no other past history. He denies any headaches, hematemesis, or hematochezia. PAST SURGICAL HISTORY: None reported. MEDICATIONS: Home medications, Flomax only. He also takes an inhaler. SOCIAL HISTORY: He admits to tobacco use, but no alcohol. No substance abuse is reported. PHYSICAL EXAMINATION: GENERAL: Reveals a 78-year-old male. VITAL SIGNS: Blood pressure is 120/80, heart rate 102, respirations 18, O2 saturation 92% on two liters of oxygen, he is afebrile. HEENT: Unremarkable. LUNGS: Bilateral rhonchi and wheezing. ABDOMEN: Soft. NEUROLOGIC: Nonfocal. LABORATORY AND DIAGNOSTIC DATA: Lab testing shows normal CBC and BMP. Chemistries are unremarkable except for the bicarb of 33, BUN 35, and creatinine 1.3. Urinalysis is negative. Imaging studies, x-ray of the chest was obtained, which shows left costophrenic angle blunting and multiple old healed rib fractures. IMPRESSION: 1. Exacerbation of chronic obstructive pulmonary disease. 2. Old healed rib fractures. 3. Active smoker. DISCUSSION: Admit to the hospital. We will start Solu-Medrol and empiric antibiotics. Oxygen and pulmonary hygiene. DVT prophylaxis. We will follow carefully. Jairon Galeano M.D. DR: KYRA JOB#: [id number] CC:
--- NOTE | 2018-06-28 04:01 | NUR ---
NURSE NOTES: Patient in bed asleep with no S/S of acute pain or distress at this time. Will continue to monitor
--- NOTE | 2018-06-28 05:50 | NUR ---
NURSE NOTES: Noted incident of fall with no complaints of pain at this time.SPENSER, YOU Sup, Primary MD, and next of kin made aware. Fall protocol initiated and is awaiting further orders from MD. Patient head to toe assessment done and [place] [facility] [place] Will continue to monitor. Addendum: 06/28/18 at 0612 by ALEJANDRA CLEMENTS RN Wrong patient and wrong charting.
--- NOTE | 2018-06-28 07:23 | NUR ---
HAND-OFF: Report given to Clyde Ventura RN. Patient in stable condition. Endorsed plan of care.
--- NOTE | 2018-06-28 07:26 | NUR ---
CASE MANAGEMENT:REVIEW 78 YR OLD MALE CC: SOB SINCE BEING SEEN AT [facility]. HOME HEALTH NURSE NOTED PATIENT WAS SOB SI: COPD EXACERBATION. UTI 97.8 103 18 128/89 92% ON 2L/NC BUN+35 SI: DUONEB HHN Q15 MIN X3 IV SOLUMEDROL 500CC NS BOLUS IV ROCEPHIN IV AZITHROMYCIN BLOOD & URINE CX CXR : TO TELEMETRY INTERQUAL CRITERIA MET
--- NOTE | 2018-06-28 07:33 | NUR ---
NURSE NOTES: Received report from DIANA Pollack. Patient in bed AAO X4. Patient denies acute pain or distress at this time. Able to verbally express needs and wants appropriately with no difficulty. On N/C 2L no respiratory distress at this time. IV line intact and patent. Safety precaution in place; siderails x3 up, call light within reach, bed in lowest position, brakes and alarm on at all times and placed on continuous cardiac monitoring per protocol. Will continue plan of care.
[2018-06-28 08:00] VITALS: BP 124/83
[2018-06-28 08:18] LABS: HEMATOCRIT 38.2 % (42.0-52.0); HEMOGLOBIN 11.5 G/DL (14.2-18.0); MEAN CORPUSCULAR VOLUME 75 FL (80-99); PLATELET COUNT 275 K/UL (150-450); RED BLOOD COUNT 5.08 M/UL (4.70-6.10); RED CELL DISTRIBUTION WIDTH 16.6 % (11.6-14.8)
[2018-06-28 08:28] LABS: ALANINE AMINOTRANSFERASE 8 U/L (12-78); ALBUMIN 3.3 G/DL (3.4-5.0); ALBUMIN/GLOBULIN RATIO 0.8 (1.0-2.7); ALKALINE PHOSPHATASE 62 U/L (46-116); ANION GAP 9 mmol/L (5-15); ASPARTATE AMINO TRANSFERASE 11 U/L (15-37); BILIRUBIN,TOTAL 0.3 MG/DL (0.2-1.0); BLOOD UREA NITROGEN < 1 mg/dL (7-18); CALCIUM 9.3 MG/DL (8.5-10.1); CARBON DIOXIDE 29 MMOL/L (21-32); CHLORIDE 100 MMOL/L (98-107); POTASSIUM 4.6 MMOL/L (3.5-5.1); SODIUM 138 MMOL/L (136-145)
[2018-06-28] MEDS: cefTRIAXone 1 GM in D5W 55 ML IVPB SCH (09:02)
[2018-06-28] MEDS: Heparin 5000 units/ml inj SUBQ SCH ×2 (09:06→20:14)
--- NOTE | 2018-06-28 10:24 | Pulmonology Progress Note ---
Assessment/Plan Assessment/Plan IMPRESSION: 1. Exacerbation of chronic obstructive pulmonary disease. 2. Old healed rib fractures. 3. Active smoker. DISCUSSION: Continue Solu-Medrol and empiric antibiotics. Oxygen and pulmonary hygiene. DVT prophylaxis. I will follow carefully. Subjective Interval Events: Feeling better; still SOB Constitutional: Reports: no symptoms HEENT: Repors: no symptoms Respiratory: Reports: dry cough, shortness of breath Cardiovascular: Reports: no symptoms Gastrointestinal/Abdominal: Reports: no symptoms Genitourinary: Reports: no symptoms Allergies: Coded Allergies: No Known Allergies (Unverified , 02/15/17) Objective Last 24 Hour Vital Signs Date Time Temp Pulse Resp B/P (MAP) Pulse Ox O2 Delivery O2 Flow Rate FiO2 06/28/18 09:00 Nasal Cannula 2.0 06/28/18 08:00 98.0 97 26 124/83 (97) 99 06/28/18 07:19 80 18 100 Nasal Cannula 2.0 28 06/28/18 07:14 Nasal Cannula 2.0 28 06/28/18 07:14 70 16 97 Nasal Cannula 2.0 28 06/28/18 07:14 97 Nasal Cannula 2.0 28 06/28/18 04:00 67 06/28/18 02:30 Nasal Cannula 2.0 28 06/28/18 02:29 Nasal Cannula 2.0 28 06/28/18 00:00 74 06/27/18 23:00 98 Nasal Cannula 2.0 28 06/27/18 23:00 Nasal Cannula 2.0 28 06/27/18 22:59 75 18 98 Nasal Cannula 2.0 28 06/27/18 22:51 71 18 91 Room Air 21 06/27/18 21:00 Nasal Cannula 2.0 06/27/18 20:10 72 18 99 Room Air 21 06/27/18 20:00 98.4 74 19 113/76 (88) 95 06/27/18 20:00 92 06/27/18 19:59 77 18 95 Room Air 21 06/27/18 16:00 81 06/27/18 14:39 Room Air 06/27/18 14:11 101 06/27/18 12:45 98.0 98 22 145/87 98 Room Air 06/27/18 12:42 98.0 92 18 138/82 100 Room Air 2.0 21 06/27/18 12:04 68 20 100 Room Air 21 06/27/18 12:01 75 18 99 Room Air 21 06/27/18 11:55 75 24 97 Room Air 21 06/27/18 11:53 84 20 97 Room Air 21 06/27/18 11:42 90 29 138/82 97 Room Air 06/27/18 11:41 88 22 98 Room Air 21 06/27/18 11:25 96 22 Room Air 21 06/27/18 11:25 96 22 96 Room Air 21 06/27/18 11:15 102 20 Nasal Cannula 2.0 06/27/18 10:56 97.9 103 18 128/89 92 Nasal Cannula 2.0 Intake and Output 06/27/18 06/28/18 18:59 06:59 Intake Total 740 ml Output Total 50 ml Balance 690 ml Intake Oral 240 ml IV Total 500 ml Output Urine Total 50 ml General Appearance: no acute distress HEENT: normocephalic Respiratory/Chest: chest wall non-tender, lungs clear Cardiovascular: normal peripheral pulses, normal rate Abdomen: normal bowel sounds, soft, non tender Microbiology Date/Time Source Procedure Growth Status 06/27/18 11:35 Nasal Nares Influenza Types A,B Antigen (ANDREA) - Final Complete 06/27/18 11:30 Urine,Clean Catch Urine Culture - Preliminary Resulted Laboratory Tests 06/27/18 11:25: White Blood Count 6.4, Red Blood Count 5.92, Hemoglobin 13.4L, Hematocrit 44.9, Mean Corpuscular Volume 76L, Mean Corpuscular Hemoglobin 22.7L, Mean Corpuscular Hemoglobin Concent 29.8L, Red Cell Distribution Width 16.9H, Platelet Count 357, Mean Platelet Volume 5.4L, Neutrophils (%) (Auto) , Lymphocytes (%) (Auto) , Monocytes (%) (Auto) , Eosinophils (%) (Auto) , Basophils (%) (Auto) , Differential Total Cells Counted 100, Neutrophils % ( Manual) 88H, Lymphocytes % (Manual) 8L, Monocytes % (Manual) 3, Eosinophils % ( Manual) 1, Basophils % (Manual) 0, Band Neutrophils 0, Platelet Estimate Adequate, Platelet Morphology Normal, Hypochromasia 1+, Anisocytosis 1+, Sodium Level 141, Potassium Level 4.2, Chloride Level 98, Carbon Dioxide Level 33H, Anion Gap 10, Blood Urea Nitrogen 35H, Creatinine 1.3, Estimat Glomerular Filtration Rate , Glucose Level 117H, Lactic Acid Level 1.30, Calcium Level 9.9 , Total Bilirubin 0.4, Aspartate Amino Transf (AST/SGOT) 14L, Alanine Aminotransferase (ALT/SGPT) 11L, Alkaline Phosphatase 77, Total Creatine Kinase 44, Creatine Kinase MB 2.2, Creatine Kinase MB Relative Index 5.0, Troponin I 0.000, Pro-B-Type Natriuretic Peptide 443H, Total Protein 8.7H, Albumin 3.8, Globulin 4.9, Albumin/Globulin Ratio 0.8L 06/27/18 11:30: Urine Color Yellow, Urine Appearance Slightly cloudy, Urine pH 6, Urine Specific [place] 1.020, Urine Protein 3+H, Urine Glucose (UA) Negative, Urine Ketones 4+H, Urine Blood 4+H, Urine Nitrite PositiveH, Urine Bilirubin Negative , Urine Urobilinogen Normal, Urine Leukocyte Esterase 2+H, Urine RBC 5-10H, Urine WBC 10-15H, Urine Squamous Epithelial Cells Occasional, Urine Amorphous Sediment FewH, Urine Bacteria ModerateH 06/28/18 07:07: White Blood Count 3.0#L, Red Blood Count 5.08, Hemoglobin 11.5L, Hematocrit 38.2L, Mean Corpuscular Volume 75L, Mean Corpuscular Hemoglobin 22.6L, Mean Corpuscular Hemoglobin Concent 30.1L, Red Cell Distribution Width 16.6H, Platelet Count 275, Mean Platelet Volume 5.7L, Neutrophils (%) (Auto) , Lymphocytes (%) (Auto) , Monocytes (%) (Auto) , Eosinophils (%) (Auto) , Basophils (%) (Auto) , Neutrophils % (Manual) [Pending], Lymphocytes % (Manual) [Pending], Platelet Estimate [Pending], Platelet Morphology [Pending], Sodium Level 138, Potassium Level 4.6, Chloride Level 100, Carbon Dioxide Level 29, Anion Gap 9, Blood Urea Nitrogen < 1L, Creatinine 1.0, Estimat Glomerular Filtration Rate , Glucose Level 161H, Calcium Level 9.3, Total Bilirubin 0.3, Aspartate Amino Transf (AST/SGOT) 11L, Alanine Aminotransferase (ALT/SGPT) 8L, Alkaline Phosphatase 62, Total Protein 7.7, Albumin 3.3L, Globulin 4.4, Albumin/ Globulin Ratio 0.8L, Magnesium Level 2.3, Thyroid Stimulating Hormone (TSH) 0.212L Current Medications Medications (Trade) Dose Ordered Sig/Mack Route PRN Reason Start Time Stop Time Status Last Admin Dose Admin Acetaminophen (Tylenol) 650 mg Q4H PRN ORAL Mild Pain/Temp > 100.5 06/28/18 00:45 07/28/18 00:44 Albuterol/ Ipratropium (Albuterol/ Ipratropium) 3 ml Q4HRT HHN 06/27/18 19:00 07/02/18 18:59 06/28/18 07:14 Ceftriaxone Sodium 1 gm/ Dextrose 55 ml @ 110 mls/hr DAILY IVPB 06/28/18 09:00 07/05/18 08:59 06/28/18 09:02 Guaifenesin/ Codeine Phosphate (Robitussin with codeine) 5 ml Q8H PRN ORAL For Cough 06/27/18 16:30 07/27/18 16:29 Heparin Sodium (Porcine) (Heparin 5000 units/ml) 5,000 units Q12HR SUBQ 06/27/18 21:00 07/27/18 20:59 06/28/18 09:06 Methylprednisolone Sodium Succinate (Solu-MEDROL) 40 mg EVERY 6 HOURS IVP 06/27/18 18:00 07/27/18 17:59 06/28/18 06:20 Tamsulosin HCl (Flomax) 0.4 mg BEDTIME ORAL 06/27/18 21:00 07/27/18 20:59 06/27/18 20:54 Jairon Galeano MD Jun 28, 2018 10:24
--- NOTE | 2018-06-28 11:34 | NUR ---
RD ASSESSMENT & RECOMMENDATIONS SEE CARE ACTIVITY FOR COMPLETE ASSESSMENT DAILY ESTIMATED NEEDS: Needs based on Underweight, wasting, pulmonary 50kg stated 30-40 kcals/kg 9048-5486 total kcals 1-1.5 g protein/kg 50-75 g total protein 25-30 mL/kg 0605-4444 total fluid mLs NUTRITION DIAGNOSIS: * Malnutrition, severe, in the context of chronic disease R/T emphysema as evidenced by pt w/ generalized severe wasting, reported 50# wt loss/ 31% wt change, currently 66% of [place] Body Weight, BMI underweight per guidelines, presents w/ scrotal edema. * CURRENT DIET: Cardiac soft easy chew PO DIET RECOMMENDATIONS: Rec LOW NA diet vs current LOW NA/ LOW FAT CARDIAC diet ADDITIONAL RECOMMENDATIONS: 1) OBTAIN A STANDING WEIGHT PT IS SEVERELY MALNOURISHED 2) Add Ensure 1 bottle BID in b/w meals 3) Add Soft snacks in b/w meals 4) Diet texture as tolerated 5) On solumedrol/ monitor BG for hyperglycemia
[2018-06-28 12:00] VITALS: BP 118/67
--- NOTE | 2018-06-28 13:52 | NUR ---
*-* INSURANCE *-* ALL CLINICALS, REVIEW AND INTERQUAL FAXED TO: CHAD/FRANCESCA S//Clair TOURE @ [phone] NO BRUSH WORKER ASSIGNED AT THIS TIME.. PLEASE FAX THE REVIEW /CLINICAL P- [phone] f- [phone]
[2018-06-28 16:00] VITALS: BP 114/71
--- NOTE | 2018-06-28 19:03 | NUR ---
HAND-OFF: Report given to DIANA Pollack. Patient is resting in bed.
--- NOTE | 2018-06-28 19:05 | NUR ---
NURSE NOTES: Received report from Clyde Ventura RN. Patient inn bed AAO X3 with no complaints of acute pain at this time. Able to verbally express needs and wants with no difficulty. IV lines intact and patent. Placed on cardiac monitoring per protocol with no S/S of distress noted. On NC 2L with 02 sat at 92-94%. Safety precaution in place at all times; siderails x3 up, call light within reach, bed in lowest position, brakes and alarm on at all times, also placed on continuos close monitoring for fall prevention. Needs and wants anticipated and attended, will continue plan of care and monitor for any changes noted.
[2018-06-28 20:00] VITALS: BP 103/59
[2018-06-28] MEDS: Tamsulosin 0.4mg cap ORAL SCH (20:13)
[2018-06-29] VITALS: BP 98/57
[2018-06-29] MEDS: Solu-MEDROL 40mg Inj IVP SCH ×4 (00:12→17:51)
--- NOTE | 2018-06-29 00:45 | Progress Note ---
DATE: 06/28/2018 CARDIOLOGY PROGRESS NOTE SUBJECTIVE: The patient is somewhat slightly less short of breath, but not much. He is still very congested. He is still labored. Monitored rhythm sinus and sinus tachycardia. OBJECTIVE: VITAL SIGNS: Blood pressure 114/71, pulse 78, respirations 21, and oxygen saturation on 2 L is 96%. LUNGS: Coarse breath sounds. Scattered rhonchi. HEART: Regular rhythm and rate. Normal S1, S2. ABDOMEN: Soft. EXTREMITIES: No edema. LABORATORY DATA: Potassium 4.6. Magnesium 2.3. White count 3 and hemoglobin 11.5. IMPRESSION: 1. COPD exacerbation. 2. Elevated right heart filling pressures, resulting in elevated natriuretic peptide assay. No signs of left ventricular heart failure. 3. Paroxysmal bronchospasm. 4. Nicotine addiction. PLAN: 1. Review echocardiogram. 2. Continue steroids and bronchodilators per primary care physician. 3. Follow up culture results. 4. DVT prophylaxis. 5. Check estimated PA systolic pressure. Kilo Dunn M.D. DR: PURVI JOB#: [id number] CC:
--- NOTE | 2018-06-29 02:33 | NUR ---
NURSE NOTES: Patient in bed asleep with no S/S of distress at this time. Will continue to monitor
[2018-06-29 04:00] VITALS: BP 107/67
--- NOTE | 2018-06-29 07:11 | Pulmonology Progress Note ---
Assessment/Plan Assessment/Plan IMPRESSION: 1. Exacerbation of chronic obstructive pulmonary disease. 2. Old healed rib fractures. 3. Active smoker. DISCUSSION: Continue Solu-Medrol and empiric antibiotics. Oxygen and pulmonary hygiene. DVT prophylaxis. I will follow carefully. Subjective Interval Events: Feeling better Constitutional: Reports: no symptoms HEENT: Repors: no symptoms Respiratory: Reports: no symptoms Cardiovascular: Reports: no symptoms Gastrointestinal/Abdominal: Reports: no symptoms Genitourinary: Reports: no symptoms Allergies: Coded Allergies: No Known Allergies (Unverified , 02/15/17) Objective Last 24 Hour Vital Signs Date Time Temp Pulse Resp B/P (MAP) Pulse Ox O2 Delivery O2 Flow Rate FiO2 06/29/18 04:00 66 06/29/18 04:00 97.2 74 19 107/67 (80) 100 06/29/18 02:47 Nasal Cannula 2.0 28 06/29/18 02:46 Nasal Cannula 2.0 28 06/29/18 00:00 71 06/29/18 00:00 97.2 83 17 98/57 (71) 97 06/28/18 23:14 77 18 99 Nasal Cannula 2.0 28 06/28/18 23:03 74 18 98 Nasal Cannula 2.0 28 06/28/18 21:00 Nasal Cannula 2.0 06/28/18 20:24 80 18 100 Nasal Cannula 2.0 28 06/28/18 20:19 Nasal Cannula 2.0 28 06/28/18 20:19 96 Nasal Cannula 2.0 28 06/28/18 20:17 72 18 96 Nasal Cannula 2.0 28 06/28/18 20:00 96.8 68 20 103/59 (74) 97 06/28/18 20:00 74 06/28/18 16:10 92 18 99 Nasal Cannula 2.0 28 06/28/18 16:03 79 18 96 Nasal Cannula 2.0 28 06/28/18 16:00 98.1 78 21 114/71 (85) 100 06/28/18 16:00 82 06/28/18 12:01 73 06/28/18 12:00 97.3 75 21 118/67 (84) 100 06/28/18 11:44 72 18 99 Nasal Cannula 2.0 28 06/28/18 11:34 74 18 97 Nasal Cannula 2.0 28 06/28/18 09:00 Nasal Cannula 2.0 06/28/18 08:00 98.0 97 26 124/83 (97) 99 06/28/18 07:33 60 06/28/18 07:19 80 18 100 Nasal Cannula 2.0 28 06/28/18 07:14 Nasal Cannula 2.0 28 06/28/18 07:14 70 16 97 Nasal Cannula 2.0 28 06/28/18 07:14 97 Nasal Cannula 2.0 28 Intake and Output 06/28/18 06/29/18 19:00 07:00 # Voids 5 2 General Appearance: no acute distress Respiratory/Chest: chest wall non-tender, lungs clear Cardiovascular: normal peripheral pulses Abdomen: normal bowel sounds Microbiology Date/Time Source Procedure Growth Status 06/27/18 11:40 Blood Blood Culture - Preliminary NO GROWTH AFTER 24 HOURS Resulted 06/27/18 11:25 Blood Blood Culture - Preliminary NO GROWTH AFTER 24 HOURS Resulted 06/27/18 11:35 Nasal Nares Influenza Types A,B Antigen (ANDREA) - Final Complete 06/27/18 11:30 Urine,Clean Catch Urine Culture - Preliminary Staphylococcus Sp Coag Neg Mixed Gram Positive Organism Resulted Current Medications Medications (Trade) Dose Ordered Sig/Mack Route PRN Reason Start Time Stop Time Status Last Admin Dose Admin Acetaminophen (Tylenol) 650 mg Q4H PRN ORAL Mild Pain/Temp > 100.5 06/28/18 00:45 07/28/18 00:44 Albuterol/ Ipratropium (Albuterol/ Ipratropium) 3 ml Q4HRT HHN 06/27/18 19:00 07/02/18 18:59 06/28/18 23:03 Ceftriaxone Sodium 1 gm/ Dextrose 55 ml @ 110 mls/hr DAILY IVPB 06/28/18 09:00 07/05/18 08:59 06/28/18 09:02 Guaifenesin/ Codeine Phosphate (Robitussin with codeine) 5 ml Q8H PRN ORAL For Cough 06/27/18 16:30 07/27/18 16:29 Heparin Sodium (Porcine) (Heparin 5000 units/ml) 5,000 units Q12HR SUBQ 06/27/18 21:00 07/27/18 20:59 06/28/18 20:14 Methylprednisolone Sodium Succinate (Solu-MEDROL) 40 mg EVERY 6 HOURS IVP 06/27/18 18:00 07/27/18 17:59 06/29/18 05:31 Tamsulosin HCl (Flomax) 0.4 mg BEDTIME ORAL 06/27/18 21:00 07/27/18 20:59 06/28/18 20:13 Jairon Galeano MD Jun 29, 2018 07:11
--- NOTE | 2018-06-29 07:36 | NUR ---
HAND-OFF: Report given to EomClyde RN. Patient in bed in stable condition with no S/S of distress at this time. Endorsed plan of care
--- NOTE | 2018-06-29 07:39 | NUR ---
NURSE NOTES: Received report from Ranjeet ORTIZ. Patient is up sitting on bed. No acute distress/SOB noted. AO x4 calm and comfortable. Bed is in the lowest position and call light is within reach. Will continue plan of care.
[2018-06-29] MEDS: Albuterol/Ipratropium 3ml neb HHN SCH ×6 (07:50→22:50)
[2018-06-29 08:00] VITALS: BP 111/68
[2018-06-29] MEDS: cefTRIAXone 1 GM in D5W 55 ML IVPB SCH (08:34)
[2018-06-29] MEDS: Heparin 5000 units/ml inj SUBQ SCH ×2 (08:35→21:31)
[2018-06-29 12:00] VITALS: BP 118/67
[2018-06-29 16:00] VITALS: BP 117/70
--- NOTE | 2018-06-29 16:21 | NUR ---
CASE MANAGEMENT:REVIEW 06/29/18 SI: COPD EXACERBATION 98.0 78 24 118/67 100% ON 2L/NC IS: IV ROCEPHIN Q24 IV SOLUMEDROL Q6HRS FLOMAX PO QHS HEPARIN SQ Q12 DUONEB HHN Q4HRS RTC : TELEMETRY STATUS
--- NOTE | 2018-06-29 16:27 | NUR ---
Social Service Note ALIYAH spoke with Gerardo Pacheco [phone] from the [employer]. Per Gerardo program has concern regarding patient's ability to be safe in the home. Home Health called 911 due to SOB and [place] [facility] [place] explained skilled care and insurance authorization. Gerardo requested for himself or program support assistant Viviane Hu [phone] to be notified of impending dc planning and placement if authorized. Will discuss with CM. Will monitor and follow up.
--- NOTE | 2018-06-29 19:30 | NUR ---
HAND-OFF: Report given to Ej/RN, Patient is in stable condition. Endorsed plan of care.
--- NOTE | 2018-06-29 19:31 | NUR ---
NURSE NOTES: Received pt from DIANA Schulz. Pt awake and resting. IV site intact and patent. Bed in lowest position, call light within reach.
[2018-06-29 20:00] VITALS: BP 116/69
[2018-06-29] MEDS: Tamsulosin 0.4mg cap ORAL SCH (21:27)
[2018-06-30] VITALS: BP 103/77
[2018-06-30] MEDS: Solu-MEDROL 40mg Inj IVP SCH ×4 (00:07→17:34)
[2018-06-30] MEDS: Albuterol/Ipratropium 3ml neb HHN SCH ×6 (03:14→23:30)
[2018-06-30 04:00] VITALS: BP 107/70
--- NOTE | 2018-06-30 04:30 | Progress Note ---
DATE: 06/29/2018 CARDIOLOGY PROGRESS NOTE SUBJECTIVE: Slightly less short of breath today. Still on IV steroids and inhaled bronchodilators as well as empiric antibiotics. Respiratory hygiene and oxygen by nasal cannula. No chest pain. OBJECTIVE: VITAL SIGNS: Blood pressure 107/67, pulse 74, respirations 19, and afebrile. LUNGS: Coarse breath sounds. Scattered rhonchi. No wheezing. HEART: Regular rhythm and rate. Normal S1, S2. ABDOMEN: Soft. EXTREMITIES: No edema. IMPRESSION: 1. Chronic obstructive pulmonary disease exacerbation. 2. Acute bronchitis. 3. Resolved dehydration and hypovolemia. 4. No clinical signs of acute congestive heart failure. 5. Elevated natriuretic peptide reflecting right heart filling pressure elevation. 6. Rib fracture on the right. PLAN: 1. Plan of care in place. 2. Continue steroid taper and other therapy without change and review echocardiogram once available. Kilo Dunn M.D. DR: EM JOB#: [id number] CC:
--- NOTE | 2018-06-30 07:15 | NUR ---
HAND-OFF: Report given to DIANA Bond.
--- NOTE | 2018-06-30 07:25 | NUR ---
NURSE NOTES: Received report from Ej/RN, Patient resting comfortably, IV site patent and intact. No sign of distress/SOB noted, bed in low position, Call light in reach. Will continue plan of care.
[2018-06-30 08:00] VITALS: BP 112/70
[2018-06-30] MEDS: cefTRIAXone 1 GM in D5W 55 ML IVPB SCH (08:11)
[2018-06-30] MEDS: Heparin 5000 units/ml inj SUBQ SCH ×2 (08:28→20:40)
--- NOTE | 2018-06-30 09:41 | NUR ---
*-* INSURANCE *-* UPDATED CLINICALS, REVIEW FAXED TO: CHAD/FRANCESCA S//W TEJAL @ [phone] NO SILO FILLER ASSIGNED AT THIS TIME.. PLEASE FAX THE REVIEW /CLINICAL P- [phone] f- [phone]
--- NOTE | 2018-06-30 09:55 | Pulmonology Progress Note ---
Assessment/Plan Assessment/Plan IMPRESSION: 1. Exacerbation of chronic obstructive pulmonary disease. 2. Old healed rib fractures. 3. Active smoker. DISCUSSION: DC home today Leave arrieta in outpt urology followup Subjective Interval Events: None new Constitutional: Reports: no symptoms HEENT: Repors: no symptoms Respiratory: Reports: no symptoms Cardiovascular: Reports: no symptoms Gastrointestinal/Abdominal: Reports: no symptoms Allergies: Coded Allergies: No Known Allergies (Unverified , 02/15/17) Objective Last 24 Hour Vital Signs Date Time Temp Pulse Resp B/P (MAP) Pulse Ox O2 Delivery O2 Flow Rate FiO2 06/30/18 08:00 94 06/30/18 08:00 97.7 92 25 112/70 (84) 93 06/30/18 07:47 Nasal Cannula 2.0 28 06/30/18 07:47 99 Nasal Cannula 2.0 28 06/30/18 07:46 96 22 99 Nasal Cannula 2.0 28 06/30/18 07:35 92 22 94 Nasal Cannula 2.0 28 06/30/18 04:00 97.2 88 18 107/70 (82) 97 06/30/18 04:00 88 06/30/18 03:22 91 18 98 Nasal Cannula 2.0 28 06/30/18 03:15 95 18 99 Nasal Cannula 2.0 28 06/30/18 00:00 96.7 87 19 103/77 (86) 97 06/30/18 00:00 87 06/29/18 23:04 86 18 99 Nasal Cannula 2.0 28 06/29/18 22:51 90 18 99 Nasal Cannula 2.0 28 06/29/18 21:00 Nasal Cannula 2.0 06/29/18 20:53 82 18 99 Nasal Cannula 2.0 28 06/29/18 20:50 99 Nasal Cannula 2.0 28 06/29/18 20:50 Nasal Cannula 2.0 28 06/29/18 20:45 80 20 99 Nasal Cannula 2.0 28 06/29/18 20:00 96.8 90 19 116/69 (85) 98 06/29/18 20:00 90 06/29/18 16:00 98.0 87 21 117/70 (86) 100 06/29/18 16:00 85 06/29/18 15:25 82 20 98 Nasal Cannula 2.0 28 06/29/18 15:15 79 20 98 Nasal Cannula 2.0 28 06/29/18 12:00 98.0 78 24 118/67 (84) 100 06/29/18 12:00 88 06/29/18 11:22 75 20 99 Nasal Cannula 2.0 28 06/29/18 11:12 77 22 99 Nasal Cannula 2.0 28 Intake and Output 06/29/18 06/30/18 19:00 07:00 Intake Total 500 ml Balance 500 ml Intake Oral 500 ml # Voids 2 General Appearance: no acute distress HEENT: normocephalic Respiratory/Chest: chest wall non-tender, lungs clear Cardiovascular: normal peripheral pulses, normal rate Microbiology Date/Time Source Procedure Growth Status 06/27/18 11:40 Blood Blood Culture - Preliminary NO GROWTH AFTER 48 HOURS Resulted 06/27/18 11:25 Blood Blood Culture - Preliminary NO GROWTH AFTER 48 HOURS Resulted 06/27/18 11:35 Nasal Nares Influenza Types A,B Antigen (ANDREA) - Final Complete 06/27/18 11:30 Urine,Clean Catch Urine Culture - Final Staphylococcus Epidermidis Mixed Gram Positive Organism Complete Current Medications Medications (Trade) Dose Ordered Sig/Mack Route PRN Reason Start Time Stop Time Status Last Admin Dose Admin Acetaminophen (Tylenol) 650 mg Q4H PRN ORAL Mild Pain/Temp > 100.5 06/28/18 00:45 07/28/18 00:44 Albuterol/ Ipratropium (Albuterol/ Ipratropium) 3 ml Q4HRT HHN 06/27/18 19:00 07/02/18 18:59 06/30/18 07:35 Ceftriaxone Sodium 1 gm/ Dextrose 55 ml @ 110 mls/hr DAILY IVPB 06/28/18 09:00 07/05/18 08:59 06/30/18 08:11 Guaifenesin/ Codeine Phosphate (Robitussin with codeine) 5 ml Q8H PRN ORAL For Cough 06/27/18 16:30 07/27/18 16:29 Heparin Sodium (Porcine) (Heparin 5000 units/ml) 5,000 units Q12HR SUBQ 06/27/18 21:00 07/27/18 20:59 06/30/18 08:28 Methylprednisolone Sodium Succinate (Solu-MEDROL) 40 mg EVERY 6 HOURS IVP 06/27/18 18:00 07/27/18 17:59 06/30/18 06:39 Tamsulosin HCl (Flomax) 0.4 mg BEDTIME ORAL 06/27/18 21:00 07/27/18 20:59 06/29/18 21:27 Jairon Galeano MD Jun 30, 2018 09:55
[2018-06-30] MEDS ORDERED: MEDROL DOSEPAK4 MG ORAL (09:56)
--- NOTE | 2018-06-30 10:25 | NUR ---
NURSE NOTES: Called Dr. Galeano Regarding discharge plan. Received new order DC to [facility].
--- NOTE | 2018-06-30 10:38 | NUR ---
DISCHARGE PLANNING CLINICALS HAVE BEEN FAXED TO [facility] T: [phone] F: [phone]
--- NOTE | 2018-06-30 11:05 | NUR ---
P.T Note: P.T evaluation completed and treatment initiated. Please refer to P.T evaluation for current functional status. Pt is alert, Oriented to self, time and place and follows commands appropriately. Pt presents generalized weakness and decreased activity tolerance affecting overall functional mobilities and safety. Pt currently require MIN A X 1 for bed mobility , transfers and gait activities. Skilled P.T service is warranted to increase his strength, balance and endurance to improve mobility independence and safety. Pt at high fall risk would benefit SNF for short term rehab VS return to prior living arrangement. Thank you for this referral.
[2018-06-30 12:00] VITALS: BP 112/70
--- NOTE | 2018-06-30 14:22 | NUR ---
CASE MANAGEMENT:REVIEW 06/30/18 SI: COPD EXACERBATION 97.7 86 25 112/70 93% ON 2L/NC IS: IV ROCEPHIN Q24 IV SOLUMEDROL Q6HRS FLOMAX PO QHS HEPARIN SQ Q12 DUONEB HHN Q4HRS RTC : TELEMETRY STATUS PLAN: PATIENT IS VERY UNSTEADY ON HIS FEET AND NEEDS PRO TO REMAIN IN PLACE REFERRED TO 10 SNF'S FOR BED AVAILABILITY [facility]: [phone] [facility]: [phone] [facility]: [phone] [facility][phone] [facility]:[phone] [facility] [facility]:[phone] [facility];[phone] [facility]:[phone] [facility]:[phone] [facility] T:[phone]
--- NOTE | 2018-06-30 14:33 | NUR ---
DISCHARGE PLANNING PATIENT HAS BEEN REFERRED TO: [facility]: [phone] [facility]: [phone] [facility]: [phone] [facility][phone] [facility]:[phone] [facility]:[phone] [facility];[phone] [facility]:[phone] [facility]:[phone] [facility] T:[phone]
[2018-06-30 16:00] VITALS: BP 125/84
--- NOTE | 2018-06-30 19:25 | NUR ---
HAND-OFF: Report given to Ej ORTIZ, Patient is in stable condition. Endorsed plan of care.
--- NOTE | 2018-06-30 19:30 | NUR ---
NURSE NOTES: Received report from DIANA Bond and Jazz RN. Pt is awake and resting in bed. In no acute distress. IV line intact and patent. Bed in lowest position, call light within reach. Will continue plan of care.
[2018-06-30 20:00] VITALS: BP 120/80
[2018-06-30] MEDS: Tamsulosin 0.4mg cap ORAL SCH (20:40)
[2018-07-01] VITALS: BP 116/72
[2018-07-01] MEDS: Albuterol/Ipratropium 3ml neb HHN SCH ×4 (02:52→15:35)
[2018-07-01 04:00] VITALS: BP 127/83
[2018-07-01] MEDS: Solu-MEDROL 40mg Inj IVP SCH ×2 (05:53)
--- NOTE | 2018-07-01 07:30 | NUR ---
HAND-OFF: Report given to DIANA Gallegos.
[2018-07-01 08:00] VITALS: BP 132/76
--- NOTE | 2018-07-01 08:41 | NUR ---
NURSE NOTES: Pt in bed in low position, call light at bedside, pt makes needs known, O2 NC on at 2L, 2 rails up for safety, arrieta catheter in place and come from home with it on, IV site RT UA 20 locked, denies pain, no s/s of distress or sob noted. Possible discharge to SNF if insurance is approved and if SNF accepts the pt.
--- NOTE | 2018-07-01 09:48 | Nephrology Progress Note ---
Assessment/Plan Assessment/Plan A/P 1. Exacerbation of chronic obstructive pulmonary disease. - duonebds - change steroid to po and wean 2. Old healed rib fractures. 3. Active smoker. Awaiting DC to SNF Leave arrieta and f/u Urology Abx and steroid taper Rxed at DC Subjective Date patient seen: Jul 01, 2018 Time patient seen: 09:45 ROS Limited/Unobtainable: No Allergies: Coded Allergies: No Known Allergies (Unverified , 02/15/17) Subjective Patient in no distress. Awaiting DC to SNF Objective Last 24 Hour Vital Signs Date Time Temp Pulse Resp B/P (MAP) Pulse Ox O2 Delivery O2 Flow Rate FiO2 07/01/18 08:28 Nasal Cannula 2.0 07/01/18 08:13 87 22 97 Nasal Cannula 2.0 28 07/01/18 08:03 Nasal Cannula 2.0 28 07/01/18 08:03 93 Nasal Cannula 2.0 28 07/01/18 08:03 85 23 93 Nasal Cannula 2.0 28 07/01/18 08:00 97.7 80 20 132/76 (94) 100 07/01/18 04:00 97.9 82 19 127/83 (98) 99 07/01/18 04:00 82 07/01/18 00:00 97.6 76 18 116/72 (87) 96 07/01/18 00:00 76 06/30/18 21:00 Nasal Cannula 2.0 06/30/18 20:00 97.2 89 19 120/80 (93) 100 06/30/18 20:00 89 06/30/18 19:50 97 20 100 Nasal Cannula 2.0 28 06/30/18 19:40 99 18 99 Nasal Cannula 2.0 28 06/30/18 19:40 Nasal Cannula 2.0 28 06/30/18 19:40 99 Nasal Cannula 2.0 28 06/30/18 16:08 96 20 99 Nasal Cannula 2.0 28 06/30/18 16:00 98.0 94 21 125/84 (98) 99 06/30/18 16:00 88 06/30/18 15:59 62 18 99 Nasal Cannula 2.0 28 06/30/18 12:00 71 06/30/18 12:00 97.7 86 25 112/70 (84) 93 06/30/18 11:31 99 22 99 Nasal Cannula 2.0 28 06/30/18 11:21 67 22 97 Nasal Cannula 2.0 28 Intake and Output 06/30/18 07/01/18 19:00 07:00 Intake Total 55 ml Balance 55 ml IV Total 55 ml # Voids 3 1 Height (Feet): 6 Height (Inches): 0.00 Weight (Pounds): 110 General Appearance: no apparent distress EENT: normal ENT inspection Neck: normal alignment, supple Cardiovascular: regular rhythm Respiratory/Chest: expiratory wheezing Abdomen: non tender, soft Edema: no edema noted Arm (L), no edema noted Arm (R), no edema noted Leg (L), no edema noted Leg (R), no edema noted Pedal (L), no edema noted Pedal (R), no edema noted Generalized Agustín Urena MD Jul 01, 2018 09:48
[2018-07-01] MEDS: cefTRIAXone 1 GM in D5W 55 ML IVPB SCH (10:40)
[2018-07-01] MEDS: Heparin 5000 units/ml inj SUBQ SCH (10:41)
--- NOTE | 2018-07-01 10:51 | NUR ---
CASE MANAGEMENT:REVIEW 07/01/18 SI: COPD EXACERBATION 97.7 85 23 132/76 97% on 2L/NC IS: IV ROCEPHIN Q24 IV SOLUMEDROL Q6HRS FLOMAX PO QHS HEPARIN SQ Q12 DUONEB HHN Q4HRS RTC : TELEMETRY STATUS PLAN: PATIENT IS VERY UNSTEADY ON HIS FEET AND NEEDS PRO TO REMAIN IN PLACE REFERRED TO 10 SNF'S FOR BED AVAILABILITY
--- NOTE | 2018-07-01 11:00 | NUR ---
DISCHARGE PLANNING SPOKE WITH RADHA AT [facility] THEY WILL ACCEPT PATIENT MESSAGE LEFT FOR DR NAPOLES
--- NOTE | 2018-07-01 11:53 | NUR ---
*-* INSURANCE *-* UPDATED CLINICALS, REVIEW FAXED TO: CHAD/FRANCESCA S//W TEJAL @ [phone] NO JACKET CHANGER ASSIGNED AT THIS TIME.. PLEASE FAX THE REVIEW /CLINICAL P- [phone] f- [phone]
[2018-07-01 12:00] VITALS: BP 120/72
[2018-07-01] MEDS ORDERED: LEVAQUIN500 MG ORAL (12:25)
--- NOTE | 2018-07-01 13:40 | NUR ---
NURSE NOTES: Called [facility] and gave report to Vianca, EMT given aftercare plan and med recon, pt alert and Ox3 vital WNL heart rate 118 pt is anxious, belongings check with pt. no valuable with pt. Instructed Vianca that the pt will be taking Levaquin 500mg for 7 days QD (once a day)+
[2018-07-01] MEDS ORDERED: Tubing IV Secondary IV ONE (13:44)
--- NOTE | 2018-07-01 13:47 | Pulmonology Progress Note ---
Assessment/Plan Assessment/Plan IMPRESSION: 1. Exacerbation of chronic obstructive pulmonary disease. 2. Old healed rib fractures. 3. Active smoker. DISCUSSION: DC to SNF today Leave arrieta in outpt urology followup Subjective Interval Events: awaiting dc to SNF Constitutional: Reports: no symptoms HEENT: Repors: no symptoms Respiratory: Reports: no symptoms Cardiovascular: Reports: no symptoms Gastrointestinal/Abdominal: Reports: no symptoms Allergies: Coded Allergies: No Known Allergies (Unverified , 02/15/17) Objective Last 24 Hour Vital Signs Date Time Temp Pulse Resp B/P (MAP) Pulse Ox O2 Delivery O2 Flow Rate FiO2 07/01/18 12:00 97.9 85 22 120/72 (88) 99 07/01/18 11:36 85 24 99 Nasal Cannula 2.0 28 07/01/18 11:26 83 24 96 Nasal Cannula 2.0 28 07/01/18 08:28 Nasal Cannula 2.0 07/01/18 08:13 87 22 97 Nasal Cannula 2.0 28 07/01/18 08:03 Nasal Cannula 2.0 28 07/01/18 08:03 93 Nasal Cannula 2.0 28 07/01/18 08:03 85 23 93 Nasal Cannula 2.0 28 07/01/18 08:00 84 07/01/18 08:00 97.7 80 20 132/76 (94) 100 07/01/18 04:00 97.9 82 19 127/83 (98) 99 07/01/18 04:00 82 07/01/18 00:00 97.6 76 18 116/72 (87) 96 07/01/18 00:00 76 06/30/18 21:00 Nasal Cannula 2.0 06/30/18 20:00 97.2 89 19 120/80 (93) 100 06/30/18 20:00 89 06/30/18 19:50 97 20 100 Nasal Cannula 2.0 28 06/30/18 19:40 99 18 99 Nasal Cannula 2.0 28 06/30/18 19:40 Nasal Cannula 2.0 28 06/30/18 19:40 99 Nasal Cannula 2.0 28 06/30/18 16:08 96 20 99 Nasal Cannula 2.0 28 06/30/18 16:00 98.0 94 21 125/84 (98) 99 06/30/18 16:00 88 06/30/18 15:59 62 18 99 Nasal Cannula 2.0 28 Intake and Output 06/30/18 07/01/18 18:59 06:59 Intake Total 55 ml Balance 55 ml IV Total 55 ml # Voids 3 1 General Appearance: no acute distress HEENT: normocephalic Respiratory/Chest: chest wall non-tender, lungs clear Cardiovascular: normal peripheral pulses, normal rate Abdomen: normal bowel sounds Current Medications Medications (Trade) Dose Ordered Sig/Mack Route PRN Reason Start Time Stop Time Status Last Admin Dose Admin Acetaminophen (Tylenol) 650 mg Q4H PRN ORAL Mild Pain/Temp > 100.5 06/28/18 00:45 07/28/18 00:44 Albuterol/ Ipratropium (Albuterol/ Ipratropium) 3 ml Q4HRT HHN 06/27/18 19:00 07/02/18 18:59 07/01/18 11:25 Ceftriaxone Sodium 1 gm/ Dextrose 55 ml @ 110 mls/hr DAILY IVPB 06/28/18 09:00 07/05/18 08:59 07/01/18 10:40 Guaifenesin/ Codeine Phosphate (Robitussin with codeine) 5 ml Q8H PRN ORAL For Cough 06/27/18 16:30 07/27/18 16:29 Heparin Sodium (Porcine) (Heparin 5000 units/ml) 5,000 units Q12HR SUBQ 06/27/18 21:00 07/27/18 20:59 07/01/18 10:41 Methylprednisolone Sodium Succinate (Solu-MEDROL) 40 mg Q12HR IVP 07/01/18 21:00 07/27/18 17:59 Tamsulosin HCl (Flomax) 0.4 mg BEDTIME ORAL 06/27/18 21:00 07/27/18 20:59 06/30/18 20:40 Jairon Galeano MD Jul 01, 2018 13:47
[2018-07-01] MEDS ORDERED: Solu-MEDROL 40mg Inj IVP SCH (21:00)
--- NOTE | 2018-07-01 23:00 | Progress Note ---
CARDIOLOGY PROGRESS NOTE DATE: 07/01/2018 SUBJECTIVE: The patient feels better. He is on oral steroids. He is not short of breath at rest. Mobility is limited so far. OBJECTIVE: VITAL SIGNS: Blood pressure 132/76, pulse 80, and respirations 20. Oxygen saturation on 2 liters is 93% to 100%. LUNGS: Diminished breath sounds. No wheezing. HEART: Regular rhythm and rate. Normal S1, S2. No third heart sound. No murmur. ABDOMEN: Soft. EXTREMITIES: There is no edema. IMPRESSION: 1. Chronic obstructive pulmonary disease exacerbation with paroxysmal bronchospasm, now improved. 2. Acute bronchitis, recovering. 3. No signs of pulmonary venous congestion. 4. Natriuretic peptide elevation is likely due to right heart filling pressure elevations in this clinical setting. 5. Right rib fractures causing pain and splinting. 6. The patient is deconditioned and stable for discharge to intermediate facility for rehabilitation and completion of care. 7. Discharge medication regimen was reviewed. Kilo Dunn M.D. : JORJE JOB#: [id number] CC:
--- NOTE | 2018-07-01 23:00 | Progress Note ---
DATE: 06/30/2018 CARDIOLOGY PROGRESS NOTE SUBJECTIVE: The patient has urinary retention. His shortness of breath has decreased. His steroid dosing has been tapered. He has no chest pain. OBJECTIVE: VITAL SIGNS: Blood pressure 112/70, pulse 92, respirations 25, and afebrile. Monitored rhythm sinus. Rare atrial ectopics. LUNGS: Diminished breath sounds. Few rhonchi. No wheezes. HEART: Regular rhythm and rate. Normal S1, S2. ABDOMEN: Soft. EXTREMITIES: No edema. IMPRESSION: 1. Chronic obstructive pulmonary disease exacerbation. 2. Acute bronchitis. 3. Rehydrated. 4. No signs of acute congestive heart failure. 5. Clinically insignificant natriuretic peptide elevation reflecting right-sided filling pressures. 6. Right rib fracture likely secondary to fall in the setting of osteoporosis. Kilo Dunn M.D. DR: DARIUS JOB#: [id number] CC:
--- NOTE | 2018-07-03 11:39 | Discharge Summary ---
Discharge Summary Discharge Summary _ DATE OF ADMISSION: 06/27/2018 DATE OF DISCHARGE: 07/01/2018 DISCHARGED BY: Dr. Galeano REASON FOR ADMISSION: 78 years old male with past medical history of COPD, presented with cough, shortness of breath, and wheezing. Next he denied chest pain. He is active smoker. He denied headache, hematemesis or hematochezia. Laboratory workup revealed stable CBC. Chemistry unremarkable except bicarb 33, BUN 35, creatinine 1.3. Troponin negative. Pro BNP 443. EKG reveals sinus rhythm no acute ischemic changes. Urinalysis revealed possible evidence of UTI. Chest x-ray showed left costophrenic angle blunting and multiple old healed rib fracture. Patient admitted with COPD exacerbation CONSULTANTS: nurseryman assistant waiter/waitress informal Dr.De Hummel [facility]: Patient admitted to telemetry floor. Patient started on IV steroids and empiric antibiotic. Daily Supplemental oxygen provided as needed to keep pulse oximetry above 90%. Pulmonary hygiene via the handheld nebulizing with bronchodilator provided. DVT prophylaxis provided. Antitussive provided as needed. Blood cultures were negative. Rapid influenza screen test was negative. Urine culture revealed Staphylococcus epidermidis and mixed gram-positive organisms. Paleologist consulted for elevated pro BNP. Troponin negative. EKG revealed normal sinus rhythm, no acute ischemic changes. Echocardiogram revealed preserved ejection fraction of 60-65% with no evidence of left ventricular hypertrophy. No evidence of pericardial effusion. No evidence of wall motion abnormality. Aortic stenosis noted. Right ventricular systolic pressure of 47 consistent with mild pulmonary hypertension. No signs of pulmonary venous congestion. Per cardiology ,elevated proBNP was likely reflective of elevated right heart filling pressure due to underlying lung disease. No signs of left ventricular heart failure. No role of diuretic at this time. Renal parameters and electrolytes were closely monitored. Prior to discharge BUN 1, creatinine 1.0. Pain management was addressed. Supportive care provided. Steroids tapered and on discharge changed to Medrol Dosepak. Antibiotics to be completed at the facility. Patient showed signs of deconditioning. Patient was working with physical therapist. Patient was counseled on smoking cessation. Outpatient follow-up with urologist will be arranged. Savage catheter was left in place. Patient was on Flomax. Transfer was arranged to retirement facility for rehabilitation and completion of care. Patient was stable for discharge. FINAL DIAGNOSES: COPD exacerbation Old healed rib rib fractures Acute bronchitis Nicotine addiction Elevated pro BNP due to elevated right heart filling pressure. UTI DISCHARGE MEDICATIONS: See Medication Reconciliation list. DISCHARGE INSTRUCTIONS: Patient was discharged to the retirement facility. Follow up with medical doctor at the facility. I have been assigned to dictate discharge summary for this account. I was not involved in the patient's management. Kiki Tesfaye NP Jul 03, 2018 11:39
== END 2018-07-01 13:45 | DRG 140 ==
LOC: EDBD 11:01 → EMR 11:15 → 2E 12:20 → EDBEDREQ 12:46 → 2E 06-29 14:50
DX: J44.0 Chronic obstructive pulmonary disease with (acute) lower respiratory infection (principal); E86.0 Dehydration; N39.0 Urinary tract infection, site not specified; J20.9 Acute bronchitis, unspecified; J44.1 Chronic obstructive pulmonary disease with (acute) exacerbation; S22.41XD Multiple fractures of ribs, right side, subsequent encounter for fracture with routine healing; X58.XXXD Exposure to other specified factors, subsequent encounter; F17.200 Nicotine dependence, unspecified, uncomplicated; E86.1 Hypovolemia; R33.9 Retention of urine, unspecified
CPT/HCPCS: 36415; 71045; 80053; 81003; 82550; 82553; 83605; 83735; 83880; 84443; 84484; 85007; 85025; 86710; 87040; 87086; 87181; 93005; 93306; 94640; 94664; 94760; 96365; 96368; 96375; 99285; J7620